=== PATIENT | female | born 1950 | race Caucasian/White ===

== ENCOUNTER 2016-11-04 16:23 | Emergency (ER) | payer MEDICARE, OTHER ==
[2016-11-04 16:46] VITALS: RESP 18
[2016-11-04] MEDS ORDERED: ASPIRIN 81 MG CHEW PO STA (16:59)
[2016-11-04] MEDS ORDERED: SODIUM CHLORIDE 0.9% 500 ML IV STA (16:59)
--- NOTE | 2016-11-04 17:26 | ED ---
General Adult HPI - General Chief complaint: Back Pain/Injury Stated complaint: Back Pain Time Seen by Provider: 11/04/16 16:32 Source: patient, RN notes reviewed Mode of arrival: ambulatory Limitations: no limitations - History of Present Illness Initial comments: 66-year-old female presents with a chief complaint of right upper back pain. Patient states this might she's had this pain to the right lower shoulder blade. Patient states movement wouldn't change the pain touch wouldn't claims the pain. Patient states she took 2 aspirin and went out yesterday. Patient states the pain is about a 1 out of 10 intensity dull type pain. Patient states that there is no changes his breathing had no vomiting she's had no sweating. Patient states that there hasn't been any or chills. Patient states that she does have a history of high cholesterol. Patient denies any recent fever, chills, shortness of breath, chest pain, abdominal pain, nausea vomiting , numbness or tingling, dysuria or hematuria, constipation or diarrhea, headaches or visual changes, or any other current symptoms. - Related Data Home Medications Medication Instructions Recorded Confirmed Aspirin 162 mg PO ONCE PRN 11/04/16 11/04/16 Atorvastatin [Lipitor] 20 mg PO DAILY 11/04/16 11/04/16 Coricidin 1 tab PO Q6H PRN MDD 4 TABLETS 11/04/16 11/04/16 [place]-3 Fatty Acids/Fish Oil [Fish 1 cap PO DAILY 11/04/16 11/04/16 Oil 1,000 mg Softgel] Allergies Allergy/AdvReac Type Severity Reaction Status Date / Time Sulfa (Sulfonamide Allergy Itching Verified 11/04/16 17:04 Antibiotics) codeine AdvReac Nausea & Verified 11/04/16 17:04 Vomiting Review of Systems ROS Statement: Those systems with pertinent positive or pertinent negative responses have been documented in the HPI. ROS Other: All systems not noted in ROS Statement are negative. Past Medical History Past Medical History: Cancer History of Any Multi-Drug Resistant Organisms: None Reported Past Surgical History: Unable to Obtain Past Psychological History: No Psychological Hx Reported Smoking Status: Never smoker Past Alcohol Use History: None Reported Past Drug Use History: None Reported General Exam - General Exam Comments Initial Comments: General: The patient is awake and alert, in no distress, and does not appear acutely ill. Eye: Pupils are equal, round and reactive to light, extra-ocular movements are intact; there is normal conjunctiva bilaterally. No signs of icterus. Ears, nose, mouth and throat: There are moist mucous membranes and no oral lesions. Neck: The neck is supple, there is no tenderness. Cardiovascular: There is a regular rate and rhythm. No murmur, rub or gallop is appreciated. Respiratory: Lungs are clear to auscultation, respirations are non-labored, breath sounds are equal. No wheezes, stridor, rales, or rhonchi. Gastrointestinal: Soft, non-distended, non-tender abdomen without masses or organomegaly noted. There is no rebound or guarding present. No CVA tenderness. Bowel sounds are unremarkable. Back: There is no tenderness to palpation in the midline. There is no obvious deformity. No rashes noted. Musculoskeletal: Normal ROM, no tenderness, There is no pedal edema. There is no calf tenderness or swelling. Sensation intact. Pulses equal bilaterally 2+. Neurological: CN II-XII intact, There are no obvious motor or sensory deficits. Coordination appears grossly intact. Speech is normal. Skin: Skin is warm and dry and no rashes or lesions are noted. Psychiatric: Cooperative, appropriate mood & affect, normal judgment. Limitations: no limitations Course Vital Signs 11/04/16 11/04/16 16:44 17:26 Temperature 97 F L Pulse Rate 80 84 Respiratory 18 18 Rate Blood Pressure 175/81 164/79 O2 Sat by Pulse 98 98 Oximetry EKG Findings - EKG Comments: EKG Findings:: normal sinus rhythm 86 bpm, normal axis, no atopy, no S-T depressions or elevations, Medical Decision Making - Medical Decision Making 66 female presents emergency with complaints of right-sided upper back pain. At this time chest x-ray and laboratory is reviewed. At this time there does not appear to be in acute process. Patient's cardiac enzymes are negative. Patient's pain is point specific to one area. She has no rash or any other findings. At this time. Low suspicion for cardiac in nature due to point specific pain that has not moved or changed and is not worsening and also gone with simple aspirin at home. This time we discussed follow-up with the doctor. We discussed return parameters and all the patient's family's questions. They stated they understood and agreed with plan. This time we will be discharged home. - Lab Data Result diagrams: 11/04/16 17:13 11/04/16 17:13 Lab Results 11/04/16 11/04/16 11/04/16 Range/Units 17:13 17:13 17:13 WBC 5.5 (3.8-10.6) k/uL RBC 4.62 (3.80-5.40) m/uL Hgb 14.5 (11.4-16.0) gm/dL Hct 43.4 (34.0-46.0) % MCV 93.8 (80.0-100.0) fL MCH 31.3 (25.0-35.0) pg MCHC 33.3 (31.0-37.0) g/dL RDW 12.9 (11.5-15.5) % Plt Count 249 (150-450) k/uL Neutrophils % 54 % Lymphocytes % 34 % Monocytes % 5 % Eosinophils % 3 % Basophils % 1 % Neutrophils # 3.0 (1.3-7.7) k/uL Lymphocytes # 1.9 (1.0-4.8) k/uL Monocytes # 0.3 (0-1.0) k/uL Eosinophils # 0.2 (0-0.7) k/uL Basophils # 0.0 (0-0.2) k/uL PT (9.0-12.0) sec INR (<1.1) APTT (22.0-30.0) sec Sodium 143 (137-145) mmol/L Potassium 4.1 (3.5-5.1) mmol/L Chloride 104 (98-107) mmol/L Carbon Dioxide 28 (22-30) mmol/L Anion Gap 11 mmol/L BUN 16 (7-17) mg/dL Creatinine 0.75 (0.52-1.04) mg/dL Est GFR (MDRD) Af Amer >60 (>60 ml/min/1.73 sqM) Est GFR (MDRD) Non-Af >60 (>60 ml/min/1.73 sqM) Glucose 100 H (74-99) mg/dL Calcium 9.7 (8.4-10.2) mg/dL Magnesium 1.9 (1.6-2.3) mg/dL Total Bilirubin 0.4 (0.2-1.3) mg/dL AST 28 (14-36) U/L ALT 30 (9-52) U/L Alkaline Phosphatase 63 (38-126) U/L Total Creatine Kinase 36 (30-135) U/L CK-MB (CK-2) 0.3 (0.0-2.4) ng/mL CK-MB (CK-2) Rel Index 0.8 Troponin I <0.012 (0.000-0.034) ng/mL Total Protein 7.0 (6.3-8.2) g/dL Albumin 3.9 (3.5-5.0) g/dL Amylase 79 (30-110) U/L Lipase 279 (23-300) U/L 11/04/16 Range/Units 17:13 WBC (3.8-10.6) k/uL RBC (3.80-5.40) m/uL Hgb (11.4-16.0) gm/dL Hct (34.0-46.0) % MCV (80.0-100.0) fL MCH (25.0-35.0) pg MCHC (31.0-37.0) g/dL RDW (11.5-15.5) % Plt Count (150-450) k/uL Neutrophils % % Lymphocytes % % Monocytes % % Eosinophils % % Basophils % % Neutrophils # (1.3-7.7) k/uL Lymphocytes # (1.0-4.8) k/uL Monocytes # (0-1.0) k/uL Eosinophils # (0-0.7) k/uL Basophils # (0-0.2) k/uL PT 9.9 (9.0-12.0) sec INR 1.0 (<1.1) APTT 23.0 (22.0-30.0) sec Sodium (137-145) mmol/L Potassium (3.5-5.1) mmol/L Chloride (98-107) mmol/L Carbon Dioxide (22-30) mmol/L Anion Gap mmol/L BUN (7-17) mg/dL Creatinine (0.52-1.04) mg/dL Est GFR (MDRD) Af Amer (>60 ml/min/1.73 sqM) Est GFR (MDRD) Non-Af (>60 ml/min/1.73 sqM) Glucose (74-99) mg/dL Calcium (8.4-10.2) mg/dL Magnesium (1.6-2.3) mg/dL Total Bilirubin (0.2-1.3) mg/dL AST (14-36) U/L ALT (9-52) U/L Alkaline Phosphatase (38-126) U/L Total Creatine Kinase (30-135) U/L CK-MB (CK-2) (0.0-2.4) ng/mL CK-MB (CK-2) Rel Index Troponin I (0.000-0.034) ng/mL Total Protein (6.3-8.2) g/dL Albumin (3.5-5.0) g/dL Amylase (30-110) U/L Lipase (23-300) U/L - Radiology Data Radiology results: report reviewed, image reviewed Disposition Clinical Impression: Right-sided back pain Disposition: HOME SELF-CARE Condition: Stable Instructions: Back Pain (ED) Additional Instructions: Please use medication as discussed. Please follow up with family doctor if symptoms have not improved over the next two days. Please return to the emergency room if your symptoms increase or worsen or for any other concerns. Referrals: Braden Vela MD [Primary Care Provider] - 1-2 days Time of Disposition: 18:09
[2016-11-04 17:27] VITALS: BP 164/79; PULSE 84
[2016-11-04 17:27] LABS: Basophils % (A) 1 %; CH 30.8; Eosinophils # (A) 0.2 k/uL (0-0.7); Eosinophils % (A) 3 %; HCT 43.4 % (34.0-46.0); HDW 2.56; HGB 14.5 gm/dL (11.4-16.0); Luc # (Auto) 0.16; Luc % (Auto) 3; Lymphocytes # (A) 1.9 k/uL (1.0-4.8); Lymphocytes % (A) 34 %; MCH 31.3 pg (25.0-35.0); MCHC 33.3 g/dL (31.0-37.0); MCV 93.8 fL (80.0-100.0); Mean Platelet Volume 7.7; Monocytes # (A) 0.3 k/uL (0-1.0); Monocytes % (A) 5 %; Neutrophils % (A) 54 %; RBC 4.62 m/uL (3.80-5.40); RDW 12.9 % (11.5-15.5); WBC 5.5 k/uL (3.8-10.6)
[2016-11-04 17:34] LABS: Prothrombin Time 9.9 sec (9.0-12.0)
[2016-11-04 17:40] LABS: ALT 30 U/L (9-52); AST 28 U/L (14-36); Alkaline Phosphatase 63 U/L (38-126); Amylase 79 U/L (30-110); Anion Gap 11 mmol/L; Blood Urea Nitrogen 16 mg/dL (7-17); Calcium 9.7 mg/dL (8.4-10.2); Carbon Dioxide 28 mmol/L (22-30); Chloride 104 mmol/L (98-107); Creatine Kinase 36 U/L (30-135); Glucose 100 mg/dL (74-99); Magnesium 1.9 mg/dL (1.6-2.3); Non-African American GFR(MDRD) >60 (>60 ml/min/1.73 sqM); Potassium 4.1 mmol/L (3.5-5.1); Sodium 143 mmol/L (137-145); Total Bilirubin 0.4 mg/dL (0.2-1.3)
[2016-11-04 17:52] LABS: Creatine Kinase MB 0.3 ng/mL (0.0-2.4); Troponin I <0.012 ng/mL (0.000-0.034)
--- NOTE | 2016-11-04 17:52 | XR ---
EXAMINATION TYPE: XR chest 2V DATE OF EXAM: 11/04/2016 5:44 PM COMPARISON: Chest radiograph dated 01/05/2010. HISTORY: Chest pain and upper back pain. TECHNIQUE: Frontal and lateral views of the chest are obtained. FINDINGS: There is no focal air space opacity, pleural effusion, or pneumothorax seen. The cardiac silhouette size is within normal limits. The osseous structures are intact. Surgical clips are note d within the left upper quadrant. IMPRESSION: No acute cardiopulmonary process.
[2016-11-04 18:30] VITALS: TEMP 97.5
== END 2016-11-04 18:20 | disposition home or self-care (01) ==
LOC: EC 16:23
DX: M54.6 Pain in thoracic spine (principal); Z85.9 Personal history of malignant neoplasm, unspecified; Z79.899 Other long term (current) drug therapy; Z88.2 Allergy status to sulfonamides; Z88.5 Allergy status to narcotic agent
CPT/HCPCS: 36415; 71020; 80053; 82150; 82550; 82553; 83690; 83735; 84484; 85025; 85610; 85730; 93005; 96360; 99283

== ENCOUNTER → 2017-06-15 | Outpatient (CLI) | payer MEDICARE, OTHER ==
--- NOTE | 2017-06-15 11:12 | MM ---
Reason for exam: additional evaluation requested from prior study. Last mammogram was performed 1 year ago. History: Patient is postmenopausal, has history of other cancer at age 62, and has history of breast cancer at age 54. Family history of breast cancer in maternal aunt at age 75 and premenopausal breast cancer in maternal cousin at age 40. Breast lift of the left breast, 2016. Reduction of the right breast, 2016. Malignant stereotactic core biopsy of the left breast, October 14, 2004. Lumpectomy of the left breast, October 2004. Chemotherapy, 2004. Radiation therapy of the left breast, 2004. Took estrogen for 3 years beginning at age 45. Took progesterone for 3 years beginning at age 45. Took antineoplastic for 5 years beginning at age 54. Taking other hormone for 5 years beginning at age 59. Physical Findings: Nurse did not find any significant physical abnormalities on exam. MG 3D Diag Mammo W/Cad LUKE Bilateral CC and MLO view(s) were taken. Prior study comparison: June 14, 2016, bilateral MG 3d diag mammo w/cad LUKE. June 09, 2015, bilateral MG diagnostic mammo w CAD LUKE. The breast tissue is almost entirely fat. Stable benign calcifications. Stable post operative changes in the left breast. No significant new findings when compared with previous films. These results were verbally communicated with the patient and result sheet given to the patient on 06/15/17. ASSESSMENT: Benign, BI-RAD 2 RECOMMENDATION: Follow-up diagnostic mammogram of both breasts in 1 year.
== END | disposition home or self-care (01) ==
LOC: RADMAMWWP 10:20
PROVIDERS: ATTEND Family Medicine
DX: Z08 Encounter for follow-up examination after completed treatment for malignant neoplasm (principal); Z85.3 Personal history of malignant neoplasm of breast
CPT/HCPCS: G0204; G0279

== ENCOUNTER → 2017-12-22 | Outpatient (CLI) | payer MEDICARE, OTHER ==
[2017-12-22 14:58] LABS: Blood Urea Nitrogen 20 mg/dL (7-17)
--- NOTE | 2017-12-22 16:28 | CT ---
EXAMINATION TYPE: CT abdomen pelvis w con DATE OF EXAM: 12/22/2017 COMPARISON: 5-16 HISTORY: rt kidney ca/lt breast ca CT DLP: 1258 mGycm CONTRAST: CT scan of the abdomen and pelvis is performed with Oral Contrast and with IV Contrast, patient injec song with 100 mL of Isovue 300. FINDINGS: LUNG BASES-: No visible nodule. No infiltrate. Small sliding-type hiatal hernia with reflux. LIVER/GB: No calcified gallstones. No space occupying hepatic lesion. Biliary tree is of normal ca liber. PANCREAS: No inflammation. No distinct mass. SPLEEN: No splenic enlargement. Stable splenic cyst. ADRENALS: No nodule. No thickening. KIDNEYS/BLADDER: Postoperative changes right kidney without evidence for recurrent mass. Parapelvic renal cysts noted bilaterally left greater than right. No hydronephrosis. No nephrolithiasis. Urinar y bladder grossly unremarkable. BOWEL: Normal appendix. Normal bowel caliber. No inflammation. GENITAL ORGANS: Hysterectomy changes identified. LYMPH NODES: No greater than 1cm abdominal or pelvic lymph nodes are appreciated. AORTA: No significant abnormality. OSSEOUS STRUCTURES: No significant abnormality is seen. OTHER: No significant additional abnormality is seen. IMPRESSION: 1. Postoperative changes right kidney without evidence for recurrent mass. 2.Parapelvic renal cysts noted bilaterally left greater than right.
== END ==
LOC: RADCTMAIN 14:13
PROVIDERS: ATTEND Urology
DX: N28.1 Cyst of kidney, acquired (principal); Z90.5 Acquired absence of kidney
CPT/HCPCS: 82565; 84520; 74177; 36415; Q9967

== ENCOUNTER → 2018-07-06 | Outpatient (CLI) | payer MEDICARE, OTHER ==
--- NOTE | 2018-07-09 10:31 | MM ---
Reason for exam: additional evaluation requested from prior study. Last mammogram was performed 1 year and 1 month ago. History: Patient is postmenopausal, has history of other cancer at age 62, and has history of breast cancer at age 54. Family history of breast cancer in maternal aunt at age 75 and premenopausal breast cancer in maternal cousin at age 40. Breast lift of the left breast, 2016. Reduction of the right breast, 2016. Malignant stereotactic core biopsy of the left breast, October 14, 2004. Lumpectomy of the left breast, October 2004. Chemotherapy, 2004. Radiation therapy of the left breast, 2004. Took estrogen for 3 years beginning at age 45. Took progesterone for 3 years beginning at age 45. Took antineoplastic for 5 years beginning at age 54. Taking other hormone for 5 years beginning at age 59. Physical Findings: Nurse did not find any significant physical abnormalities on exam. MG 3D Diag Mammo W/Cad LUKE Bilateral CC and MLO view(s) were taken. ML, CC with magnification, and ML with magnification view(s) were taken of the left breast. Prior study comparison: June 15, 2017, bilateral MG 3d diag mammo w/cad LUKE. June 14, 2016, bilateral MG 3d diag mammo w/cad LUKE. Finding: There are regional course calcifications in the left breast at biopsy site may be post surgical change. Consensus review performed. Asymmetric breast tissue greater in the right breast. Post surgical changes in left breast. New finding since June 15, 2017 and June 14, 2016. These results were verbally communicated with the patient and result sheet given to the patient on 07/06/18. ASSESSMENT: Suspicious, BI-RAD 4 RECOMMENDATION: Surgical consultation and stereotactic core biopsy of the left breast. Called Dr. Vela with mammographic findings and has scheduled an appointment for the patient for 08/08/18 at 3:[address] Montemayor. Biopsy scheduled for 07/19/18 at 10:20. PRELIMINARY REPORT CALLED AND FAXED TO DR. MONTEMAYOR ON 07/06/18.
== END | disposition home or self-care (01) ==
LOC: RADMAMWWP 14:08
PROVIDERS: ATTEND Family Medicine
DX: Z08 Encounter for follow-up examination after completed treatment for malignant neoplasm (principal); Z85.3 Personal history of malignant neoplasm of breast
CPT/HCPCS: 77066; G0279; 77062

== ENCOUNTER → 2018-07-19 | Day surgery (SDC) | payer MEDICARE, OTHER ==
[2018-07-19 09:34] VITALS: RESP 16; TEMP 98.1; BMI 28.1
[2018-07-19 10:54] VITALS: BP 148/89; PULSE 101
--- NOTE | 2018-07-19 10:56 | MM ---
Stereotactic Mammotome core biopsy left breast. HISTORY: Microcalcifications in a patient with history of prior lumpectomy. The microcalcifications in question within the left breast were targeted by the undersigned. Procedure was performed by the undersigned. Informed consent was obtained and all of the patients questions were answered. The standard sterile technique was utilized and appropriate local anesthesia was obtained with 1% lidocaine. 1% lidocaine and epinephrine was also utilized. Mammotome probe was advanced and multiple core samples were obtained and sent to pathology for interpretation. Microclip marker was deployed at the site of biopsy. Post procedural mammogram demonstrates appropriate deployment of radiopaque clip marker. The patient tolerated the procedure well and left the department in stable condition. Pathology results are pending. IMPRESSION: Successful stereotactic core biopsy left breast microcalcifications with pathology results pending. Pathology Results: Benign LEFT BREAST, STEREOTACTIC CORE BIOPSY: Scar with fat necrosis and dystrophic calcifications. Negative for malignancy. Recommendation Follow up mammogram of the left breast in 6 months. PHILIP
== END ==
LOC: RADMAMWWP 09:18
PROVIDERS: ATTEND Surgery
DX: N64.1 Fat necrosis of breast (principal); L90.5 Scar conditions and fibrosis of skin; Z88.2 Allergy status to sulfonamides; Z88.5 Allergy status to narcotic agent
CPT/HCPCS: 88305; 19081; A4648; J2001

== ENCOUNTER → 2019-01-04 | Outpatient (CLI) | payer MEDICARE, OTHER ==
--- NOTE | 2019-01-04 10:53 | MM ---
Reason for exam: follow-up at short interval from prior study. Last mammogram was performed 6 months ago. History: Patient is postmenopausal, has history of other cancer at age 62, and has history of breast cancer at age 54. Family history of breast cancer in maternal aunt at age 75 and premenopausal breast cancer in maternal cousin at age 40. Benign MG stereo VAD BX LT of the left breast, July 19, 2018. Breast lift of the left breast, 2015. Reduction of the right breast, 2015. Malignant stereotactic core biopsy of the left breast, October 14, 2004. Lumpectomy of the left breast, October 2004. Chemotherapy, 2004. Radiation therapy of the left breast, 2004. Took estrogen for 3 years beginning at age 45. Took progesterone for 3 years beginning at age 45. Took antineoplastic for 5 years beginning at age 54. Physical Findings: Nurse did not find any significant physical abnormalities on exam. MG 3D Diag Mammo W/Cad LUKE Bilateral CC and MLO view(s) were taken. Prior study comparison: July 06, 2018, bilateral MG 3d diag mammo w/cad LUKE. June 15, 2017, bilateral MG 3d diag mammo w/cad LUKE. There are scattered fibroglandular densities. Stable benign calcifications. Stable post operative distortion left breast. No significant new findings when compared with previous films. These results were verbally communicated with the patient and result sheet given to the patient on 01/04/19. ASSESSMENT: Benign, BI-RAD 2 RECOMMENDATION: Follow-up diagnostic mammogram of both breasts in 1 year.
== END ==
LOC: RADMAMWWP 10:09
PROVIDERS: ATTEND Surgery
DX: R92.8 Other abnormal and inconclusive findings on diagnostic imaging of breast (principal)
CPT/HCPCS: 77066; G0279; 77062

== ENCOUNTER 2019-01-12 12:22 | Emergency (ER) | payer MEDICARE, OTHER ==
[2019-01-12 12:35] VITALS: BP 146/73; PULSE 97; RESP 18; TEMP 98.2
[2019-01-12 12:56] LABS: Appearance,Urine Clear (Clear); Bilirubin,Urine Negative (Negative); Blood,Urine Moderate (Negative); Color,Urine Light Yellow; Glucose,Urine (UA) Negative (Negative); Ketones,Urine Trace (Negative); Leukocyte Esterase,Urine Large (Negative); Mucus,Urine Rare /hpf; Nitrite,Urine Positive (Negative); Protein,Urine Trace (Negative); RBC,Urine >182 /hpf (0-5); Specific Gravity,Urine 1.017 (1.001-1.035); Squamous Epithelial Cell,Urine <1 /hpf (0-4); Urobilinogen,Urine <2.0 mg/dL (<2.0); WBC,Urine 52 /hpf (0-5)
--- NOTE | 2019-01-12 13:35 | ED ---
Female Urogenital HPI - General Chief complaint: Urogenital Stated complaint: blood in urine Time Seen by Provider: 01/12/19 12:35 Source: patient Mode of arrival: ambulatory - History of Present Illness Initial comments: 68-year-old female with history of left renal carcinoma in remission presented today for chief complaint of cereal and hematuria. Patient states she has burni ng with teeing she noticed a small lump on a little finger. Patient states when she wrecked emergency department and provided urine sample she noticed blood in the urine. Patient is concerned of possible infection she states she does have a left kidney cyst is not sure if this is associated. Patient states her primary care is closed and presents emergency department for evaluation. Remaining review of systems negative. - Related Data Home Medications Medication Instructions Recorded Confirmed Atorvastatin [Lipitor] 20 mg PO DAILY 11/04/16 07/19/18 [place]-3 Fatty Acids/Fish Oil [Fish 1 cap PO DAILY 11/04/16 07/19/18 Oil 1,000 mg Softgel] Loratadine [Claritin] 10 mg PO DAILY 07/09/18 07/19/18 Multivit with Calcium,Iron,Min 1 each PO DAILY 07/09/18 07/19/18 [Women's Multivitamin] Previous Rx's Medication Instructions Recorded Cephalexin [Keflex] 500 mg PO Q12HR 7 Days #14 cap 01/12/19 Allergies Allergy/AdvReac Type Severity Reaction Status Date / Time Sulfa (Sulfonamide Allergy Itching Verified 01/12/19 12:35 Antibiotics) codeine AdvReac Nausea & Verified 01/12/19 12:35 Vomiting Review of Systems ROS Statement: Those systems with pertinent positive or pertinent negative responses have been documented in the HPI. ROS Other: All systems not noted in ROS Statement are negative. Past Medical History Past Medical History: Cancer, Hyperlipidemia Additional Past Medical History / Comment(s): Left breast cancer 2004, Kidney cancer 2012 History of Any Multi-Drug Resistant Organisms: None Reported Past Surgical History: Breast Surgery, Hysterectomy Additional Past Surgical History / Comment(s): Right ear surgery, Breast lumpectomy, Breast reconstruction and lift 2016, Past Anesthesia/Blood Transfusion Reactions: No Reported Reaction Past Psychological History: No Psychological Hx Reported Smoking Status: Never smoker Past Alcohol Use History: Rare Past Drug Use History: None Reported General Exam - General Exam Comments Initial Comments: General: The patient is awake and alert, in no distress, and does not appear acutely ill. Eye: Pupils are equal, round and reactive to light, extra-ocular movements are intact. No nystagmus. There is normal conjunctiva bilaterally. No signs of icterus. Cardiovascular: There is a regular rate and rhythm. No murmur, rub or gallop is appreciated. Respiratory: Lungs are clear to auscultation, respirations are non-labored, breath sounds are equal. No wheezes, stridor, rales, or rhonchi. Gastrointestinal: Soft, non-distended, non-tender abdomen without masses or organomegaly noted. There is no rebound or guarding present. No CVA tenderness. Bowel sounds are unremarkable. Musculoskeletal: Normal ROM, no tenderness. Strength 5/5. Sensation intact. Pulses equal bilaterally 2+. Neurological: A&O x 3. CN II-XII intact, There are no obvious motor or sensory deficits. Coordination appears grossly intact. Speech is normal. Skin: Skin is warm and dry and no rashes or lesions are noted. Psychiatric: Cooperative, appropriate mood & affect, normal judgment. Course Vital Signs 01/12/19 12:32 Temperature 98.2 F Pulse Rate 97 Respiratory 18 Rate Blood Pressure 146/73 O2 Sat by Pulse 97 Oximetry Medical Decision Making - Medical Decision Making 68yo female presented for dysuria hematuria. Urinalysis revealed positive nitrates, white blood cells, patient denies any constitutional symptoms or back pain no CVA tenderness on exam. Patient appears well and nontoxic. Afebrile vital signs within acceptable limits. At this time will treat urinary tract in fection patient is to follow-up with urology given patient's history of renal cancer. I discussed the case with attending provider including patient's past mental history with attending Dr. Valenzuela who is agreeable patient care plan in discharge at this time. Return parameters were discussed at length and in detail patient prior to patient discharge-verbalized understanding. - Lab Data Lab Results 01/12/19 Range/Units 12:47 Urine Color Light Yellow Urine Appearance Clear (Clear) Urine pH 6.0 (5.0-8.0) Ur Specific [place] 1.017 (1.001-1.035) Urine Protein Trace H (Negative) Urine Glucose (UA) Negative (Negative) Urine Ketones Trace H (Negative) Urine Blood Moderate H (Negative) Urine Nitrite Positive H (Negative) Urine Bilirubin Negative (Negative) Urine Urobilinogen <2.0 (<2.0) mg/dL Ur Leukocyte Esterase Large H (Negative) Urine RBC >182 H (0-5) /hpf Urine WBC 52 H (0-5) /hpf Ur Squamous Epith Cells <1 (0-4) /hpf Urine Mucus Rare H (None) /hpf Disposition Clinical Impression: UTI (urinary tract infection) Disposition: HOME SELF-CARE Condition: Good Instructions (If sedation given, give patient instructions): Urinary Tract Infection in Women (ED) Additional Instructions: Please use medication as discussed. Please follow-up with Dr. Gunter next week. Please return to emergency room if the symptoms increase or worsen or for any other concerns. Prescriptions: Cephalexin [Keflex] 500 mg PO Q12HR 7 Days #14 cap Is patient prescribed a controlled substance at d/c from ED?: No Referrals: Braden Vela MD [Primary Care Provider] - 1-2 days Time of Disposition: 13:35
== END 2019-01-12 14:10 | disposition home or self-care (01) ==
LOC: EC 12:22
DX: N39.0 Urinary tract infection, site not specified (principal); R22.30 Localized swelling, mass and lump, unspecified upper limb; E78.5 Hyperlipidemia, unspecified; Z85.3 Personal history of malignant neoplasm of breast; Z85.528 Personal history of other malignant neoplasm of kidney; Z79.899 Other long term (current) drug therapy; Z88.2 Allergy status to sulfonamides; Z88.5 Allergy status to narcotic agent
CPT/HCPCS: 81001; 99283

== ENCOUNTER → 2019-01-22 | Outpatient (CLI) | payer MEDICARE, OTHER ==
[2019-01-22 14:24] LABS: Blood Urea Nitrogen 20 mg/dL (7-17)
--- NOTE | 2019-01-22 14:58 | CT ---
EXAMINATION TYPE: CT abdomen w con DATE OF EXAM: 01/22/2019 COMPARISON: 12/22/2017 HISTORY: Right sided renal cancer. CT DLP: 679 mGycm Automated exposure control for dose reduction was used. TECHNIQUE: Helical acquisition of images was performed from the lung bases through the top of iliac crest to include entire abdomen. CONTRAST: Performed with Oral Contrast and with IV Contrast, patient injected with 100ml mL of Isovue 300. FINDINGS: LUNG BASES: Heart is mildly enlarged and there is a trace of pericardial fluid. Lungs clear.. LIVER/GB: Tiny hypodensities involving the dome of the liver measure less than 5 mm are too small to characterize and stable and therefore likely benign. PANCREAS: No significant abnormality is seen. SPLEEN: Stable's 8mm lesion within the spleen too small to characterize. ADRENALS: No significant abnormality is seen. KIDNEYS: Bilateral parapelvic renal cysts have a simple appearance stable. Correlate for previous deon frankie involving the right kidney. No diagnostic evidence of hydronephrosis or nephrolithiasis. BOWEL: No significant abnormality is seen. LYMPH NODES: No significant abnormality is seen. OSSEOUS STRUCTURES: Degenerative disc disease noted. OTHER: Atherosclerotic changes aorta. No free fluid. Post hysterectomy changes identified. Postbiopsy changes involving the left breast with residual density which likely represents scar is stable from prior exam. IMPRESSION: 1. STABLE POSTOPERATIVE CHANGES INVOLVING THE RIGHT KIDNEY WITH NO EVIDENCE OF RECURRENT MASS.
== END | disposition home or self-care (01) ==
LOC: RADCTMAIN 13:41
PROVIDERS: ATTEND Urology
DX: Z08 Encounter for follow-up examination after completed treatment for malignant neoplasm (principal); Z88.2 Allergy status to sulfonamides; Z88.5 Allergy status to narcotic agent; Z85.528 Personal history of other malignant neoplasm of kidney
CPT/HCPCS: 82565; 84520; 74160; 36415; Q9967

== ENCOUNTER → 2019-08-09 | Outpatient (CLI) | payer MEDICARE, OTHER ==
--- NOTE | 2019-08-09 12:08 | USB ---
Reason for exam: clinical finding. History: Patient is postmenopausal, has history of other cancer at age 62, and has history of breast cancer at age 54. Family history of breast cancer in maternal aunt at age 75 and premenopausal breast cancer in maternal cousin at age 40. Benign MG stereo VAD BX LT of the left breast, July 19, 2018. Breast lift of the left breast, 2016. Reduction of the right breast, 2016. Malignant stereotactic core biopsy of the left breast, October 14, 2004. Lumpectomy of the left breast, October 2004. Chemotherapy, 2004. Radiation therapy of the left breast, 2004. Took estrogen for 3 years beginning at age 45. Took progesterone for 3 years beginning at age 45. Took antineoplastic for 5 years beginning at age 54. Indicated problem(s): palpable abnormality in the left breast. Physical Findings: Nurse Summary: elongated, hardened palpable area left breast 4-5 o'clock near scar (nurse TM). US Breast LT Left complete breast ultrasound includes all four quadrants, the retroareolar region and axilla. Finding demonstrates a 1.4 x 0.8 x 0.5cm solid, hypoechoic, suspicious lesion at 5 o'clock for which a biopsy is recommended. These results were verbally communicated with the patient and result sheet given to the patient on 08/09/19. ASSESSMENT: Suspicious, BI-RAD 4 RECOMMENDATION: Ultrasound core biopsy of the left breast. Called Dr. Ayoub's office with mammographic findings and has scheduled an appointment for the patient for 08/21/19 at 4:[address] Montemayor. Biopsy scheduled 08/15/19 at 2:00. PRELIMINARY REPORT CALLED AND FAXED TO DR. MONTEMAYOR ON 08/09/19.
== END | disposition home or self-care (01) ==
LOC: RADUSWWP 09:34
PROVIDERS: ATTEND Obstetrics & Gynecology
DX: N63.0 Unspecified lump in unspecified breast (principal)

== ENCOUNTER → 2019-08-15 | Day surgery (SDC) | payer MEDICARE, OTHER ==
[2019-08-15 13:15] VITALS: RESP 16
[2019-08-15 14:06] VITALS: BP 124/76; PULSE 83; TEMP 97.6
--- NOTE | 2019-08-15 14:24 | USB ---
EXAMINATION TYPE: US biopsy breast VAD LT, MG diagnostic mammo LT wo CAD DATE OF EXAM: 08/15/2019 CLINICAL HISTORY: R92.8 ABN MAMMO. TECHNIQUE: Ultrasound guided core biopsy of left 5:00 breast. COMPARISON: NONE FINDINGS: The procedure of ultrasound guided core biopsy was explained to the patient. Benefits, alternatives, and risks were discussed. An informed consent was then obtained. The patient was placed in supine positioning for imaging and for the procedure. The overlying skin was prepped and draped in usual sterile fashion. Lidocaine buffered with bicarbonate was used as anesthetic into the skin and subcutaneous tissue up to area of concern in the left 5:00 breast. Under ultrasound guidance, a 12-gauge vacuum assisted biopsy gun device was used to obtain 3 core samples. Lesion was no longer visible and likely reflects a sebaceous cyst. Following this, a biopsy clip was left in lesion. Postprocedural mammogram demonstrates appropriate deployment of microclip marker. The patient tolerated the procedure well without any immediate complication. The patient was kept in the radiology department for short stay after the procedure and then discharged home in stable condition. IMPRESSION: Successful, uncomplicated ultrasound guided core biopsy of area of concern in the left 5:00 breast, full pathology results to follow. Probable sebaceous cyst. Pathology Results: Benign LEFT BREAST LESION AT 5:00 POSITION, NEEDLE CORE BIOPSY: Dense fibrous breast parenchyma consistent with scar, partially mineralized debris and foamy giant cells consistent with ruptured duct ectasia; surrounding breast shows unremarkable adipose tissue consistent with fibrocystic spectrum disease. Negative for neoplasm. Recommendation Follow up ultrasound of the left breast in 6 months. PHILIP
== END ==
LOC: RADUSWWP 12:57
PROVIDERS: ATTEND Surgery
DX: N64.89 Other specified disorders of breast (principal)
CPT/HCPCS: 88305; 77065; 19083; A4648; J2001

== ENCOUNTER → 2020-02-10 | Outpatient (CLI) | payer MEDICARE, OTHER ==
[2020-02-10 08:45] LABS: African American GFR (CKD) >90 (>60 ml/min/1.73 sqM); Blood Urea Nitrogen 19 mg/dL (7-17); Non-African American GFR(CKD) >90 (>60 ml/min/1.73 sqM)
--- NOTE | 2020-02-10 10:04 | CT ---
EXAMINATION TYPE: CT abdomen w con DATE OF EXAM: 02/10/2020 COMPARISON: Prior CT 01/22/2019 HISTORY: follow up renal cancer CT DLP: 367 mGycm Automated exposure control for dose reduction was used. TECHNIQUE: Helical acquisition of images was performed from the lung bases through the top of iliac crest to include entire abdomen. CONTRAST: Performed with Oral Contrast and with IV Contrast, patient injected with 100 mL of Isovue 300. FINDINGS: Stable postsurgical changes in the left breast. There is a hiatal hernia present as on prio r exam. Small umbilical hernia contains fat. There are coronary artery calcifications present as on p rior. LUNG BASES: No significant abnormality is appreciated. LIVER/GB: No significant interval change is appreciated. PANCREAS: No significant abnormality is seen. SPLEEN: No significant interval change is seen. ADRENALS: No significant abnormality is seen. KIDNEYS: Stable appearance, no recurrent tumor evident, there are parapelvic cysts bilaterally. BOWEL: No significant abnormality is seen. LYMPH NODES: No significant abnormality is appreciated. OSSEOUS STRUCTURES: No significant abnormality is seen. FREE AIR: No Free Air visible ASCITES: None visible. RETROPERITONEAL ADENOPATHY: No Retroperitoneal Adenopathy visible. IMPRESSION: STABLE EXAM. RECURRENCE IS NOT EVIDENT.
== END | disposition home or self-care (01) ==
LOC: RADCTMAIN 07:55
PROVIDERS: ATTEND Urology
DX: C64.1 Malignant neoplasm of right kidney, except renal pelvis (principal); Z88.2 Allergy status to sulfonamides; Z88.5 Allergy status to narcotic agent
CPT/HCPCS: 82565; 84520; 74160; 36415; Q9967

== ENCOUNTER → 2020-02-17 | Outpatient (CLI) | payer MEDICARE, OTHER ==
--- NOTE | 2020-02-18 09:25 | MM ---
Reason for exam: follow-up at short interval from prior study. Last mammogram was performed 6 months ago. History: Patient is postmenopausal, has history of other cancer at age 62, and has history of breast cancer at age 54. Family history of breast cancer in maternal aunt at age 75 and premenopausal breast cancer in maternal cousin at age 40. Benign US biopsy breast VAD LT of the left breast, August 15, 2019. Benign MG stereo VAD BX LT of the left breast, July 19, 2018. Breast lift of the left breast, 2015. Reduction of the right breast, 2015. Malignant stereotactic core biopsy of the left breast, October 14, 2004. Lumpectomy of the left breast, October 2004. Chemotherapy, 2004. Radiation therapy of the left breast, 2004. Took estrogen for 3 years beginning at age 45. Took progesterone for 3 years beginning at age 45. Took antineoplastic for 5 years beginning at age 54. Physical Findings: Nurse did not find any significant physical abnormalities on exam. MG 3D Diag Mammo W/Cad LUKE Bilateral CC and MLO view(s) were taken. Prior study comparison: August 15, 2019, left breast MG diagnostic mammo LT wo CAD. January 04, 2019, bilateral MG 3d diag mammo w/cad [facility]. There are scattered fibroglandular densities. Post surgical and post therapy changes in the left breast. Stable fat necrosis calcifications 9 o'clock posteriorly at the excisions site and also centrally and posteriorly unchanged from 01/04/19. These results were verbally communicated with the patient and result sheet given to the patient on 02/17/20. ASSESSMENT: Incomplete: need additional imaging evaluation, BI-RAD 0 RECOMMENDATION: Ultrasound of the left breast. (as ordered)
--- NOTE | 2020-02-18 09:28 | USB ---
Reason for exam: follow-up at short interval from prior study. History: Patient is postmenopausal, has history of other cancer at age 62, and has history of breast cancer at age 54. Family history of breast cancer in maternal aunt at age 75 and premenopausal breast cancer in maternal cousin at age 40. Benign US biopsy breast VAD LT of the left breast, August 15, 2019. Benign MG stereo VAD BX LT of the left breast, July 19, 2018. Breast lift of the left breast, 2016. Reduction of the right breast, 2015. Malignant stereotactic core biopsy of the left breast, October 14, 2004. Lumpectomy of the left breast, October 2004. Chemotherapy, 2004. Radiation therapy of the left breast, 2004. Took estrogen for 3 years beginning at age 45. Took progesterone for 3 years beginning at age 45. Took antineoplastic for 5 years beginning at age 54. US Breast LT Left complete breast ultrasound includes all four quadrants, the retroareolar region and axilla. Finding demonstrates a 0.2 x 0.2 x 0.2cm oval, hyperechoic lesion with shadowing at 7 o'clock likely calcification or clip, 6 month follow up mammogram can exclude any increasing calcifications, a hyperechoic scar area at 7 o'clock and a hypoechoic, irregular scar at 7 o'clock. The excised 5 o'clock lesion in no longer seen. These results were verbally communicated with the patient and result sheet given to the patient on 02/17/20. ASSESSMENT: Probably benign, BI-RAD 3 RECOMMENDATION: Follow-up diagnostic mammogram of the left breast in 6 months.
== END | disposition home or self-care (01) ==
LOC: RADMAMWWP 10:13
PROVIDERS: ATTEND Surgery
DX: R92.8 Other abnormal and inconclusive findings on diagnostic imaging of breast (principal)
CPT/HCPCS: 77066; 76641; G0279; 77062

== ENCOUNTER → 2020-08-25 | Outpatient (CLI) | payer MEDICARE, OTHER ==
--- NOTE | 2020-08-26 08:03 | MM ---
Reason for exam: follow-up at short interval from prior study. Last mammogram was performed 6 months ago. History: Patient is postmenopausal, has history of other cancer at age 62, and has history of breast cancer at age 54. Family history of breast cancer in maternal aunt at age 75 and premenopausal breast cancer in maternal cousin at age 40. Benign US biopsy breast VAD LT of the left breast, August 15, 2019. Benign MG stereo VAD BX LT of the left breast, July 19, 2018. Breast lift of the left breast, 2015. Reduction of the right breast, 2015. Malignant stereotactic core biopsy of the left breast, October 14, 2004. Lumpectomy of the left breast, October 2004. Chemotherapy, 2004. Radiation therapy of the left breast, 2004. Took estrogen for 3 years beginning at age 45. Took progesterone for 3 years beginning at age 45. Took antineoplastic for 5 years beginning at age 54. Physical Findings: Nurse did not find any significant physical abnormalities on exam. MG 3D Diag Mammo W/Cad LT CC and MLO view(s) were taken of the left breast. Prior study comparison: February 17, 2020, bilateral MG 3d diag mammo w/cad LUKE. August 15, 2019, left breast MG diagnostic mammo LT wo CAD. There are scattered fibroglandular densities. No significant new findings when compared with previous films. These results were verbally communicated with the patient and result sheet given to the patient on 08/25/20. ASSESSMENT: Benign, BI-RAD 2 RECOMMENDATION: Follow-up diagnostic mammogram of both breasts in 6 months. Back on schedule for February 2021.
== END | disposition home or self-care (01) ==
LOC: RADMAMWWP 14:52
PROVIDERS: ATTEND Surgery
DX: R92.8 Other abnormal and inconclusive findings on diagnostic imaging of breast (principal)
CPT/HCPCS: 77065; G0279; 77061

== ENCOUNTER → 2021-02-25 | Outpatient (CLI) | payer MEDICARE, OTHER ==
--- NOTE | 2021-02-25 11:35 | MM ---
Reason for exam: additional evaluation requested from prior study. Last mammogram was performed 6 months ago. History: Patient is postmenopausal, has history of other cancer at age 62, and has history of breast cancer at age 54. Family history of breast cancer in maternal aunt at age 75 and premenopausal breast cancer in maternal cousin at age 40. Benign US biopsy breast VAD LT of the left breast, August 15, 2019. Benign MG stereo VAD BX LT of the left breast, July 19, 2018. Breast lift of the left breast, 2015. Reduction of the right breast, 2015. Malignant stereotactic core biopsy of the left breast, October 14, 2004. Lumpectomy of the left breast, October 2004. Chemotherapy, 2004. Radiation therapy of the left breast, 2004. Took estrogen for 3 years beginning at age 45. Took progesterone for 3 years beginning at age 45. Took antineoplastic for 5 years beginning at age 54. Physical Findings: Nurse did not find any significant physical abnormalities on exam. MG 3D Diag Mammo W/Cad LUKE Bilateral CC and MLO view(s) were taken. Prior study comparison: August 25, 2020, left breast MG 3d diag mammo w/cad LT. February 17, 2020, bilateral MG 3d diag mammo w/cad LUKE. There are scattered fibroglandular densities. Post operative changes bilaterally. These results were verbally communicated with the patient and result sheet given to the patient on 02/25/21. ASSESSMENT: Benign, BI-RAD 2 RECOMMENDATION: Routine screening mammogram of both breasts in 1 year.
== END | disposition home or self-care (01) ==
LOC: RADMAMWWP 10:42
PROVIDERS: ATTEND Surgery
DX: N64.89 Other specified disorders of breast (principal); Z78.0 Asymptomatic menopausal state; Z80.3 Family history of malignant neoplasm of breast; Z85.3 Personal history of malignant neoplasm of breast
CPT/HCPCS: 77066; G0279; 77062

== ENCOUNTER → 2022-03-01 | Outpatient (CLI) | payer MEDICARE, OTHER ==
--- NOTE | 2022-03-03 07:46 | MM ---
Reason for Exam: Screening (asymptomatic). Last screening mammogram was performed 12 month(s) ago. Patient History: Menarche at age 11. First Full-Term at age 18. Right ovary removed at age 42. Hysterectomy at age 42. Postmenopausal. Breast cancer, left, age 54. Previous chest radiation therapy at age 54. Previous chemotherapy at age 54. Estrogen, starting at age 45 for 3 years. Progesterone, starting at age 45 for 3 years. 10/2004, Lumpectomy on the Left side. 2015, Reduction on the Right side. 08/15/2019, Benign Core Biopsy on the left side. 07/19/2018, Benign Core Biopsy on the left side. 10/14/2004, Malignant Stereotactic Core Biopsy on the left side. 2004, Chemotherapy. 2004, Radiation Therapy on the left side. Maternal cousin had breast cancer, age 40. Maternal aunt had breast cancer, age 75. Prior Study Comparison: 02/17/2020 Bilateral Diagnostic Mammogram, [facility]. 08/25/2020 Left Diagnostic Mammogram, [facility]. 02/25/2021 Bilateral Diagnostic Mammogram, [facility]. Tissue Density: There are scattered fibroglandular densities. Findings: Analyzed By CAD. There is a large coarse calcification within the left breast. Postbiopsy clips are within the left breast. No suspicious groups of microcalcifications, spiculated or lobular masses, architectural distortion or other secondary signs of malignancy are mammographically apparent. Overall Assessment: Benign, BI-RAD 2 Management: Screening Mammogram of both breasts in 1 year. A negative mammogram report should not preclude additional follow up of suspicious palpable abnormalities. Patient should continue monthly self breast exam. A clinical breast exam by your physician is recommended on an annual basis and results should be correlated with mammographic findings. Electronically signed and approved by: Ranjith Solis D.O. Radiologis
== END | disposition home or self-care (01) ==
LOC: RADMAMWWP 09:28
PROVIDERS: ATTEND Surgery
DX: Z12.31 Encounter for screening mammogram for malignant neoplasm of breast (principal); Z80.3 Family history of malignant neoplasm of breast; Z78.0 Asymptomatic menopausal state; Z85.3 Personal history of malignant neoplasm of breast
CPT/HCPCS: 77063; 77067

== ENCOUNTER → 2022-05-16 | Outpatient (CLI) | payer MEDICARE, OTHER ==
[2022-05-16 18:07] LABS: Basophils # (A) 0.08 X 10*3/uL (0.00-0.10); Basophils % (A) 0.9 %; Eosinophils # (A) 0.22 X 10*3/uL (0.04-0.35); Eosinophils % (A) 2.5 %; HCT 46.1 % (37.2-46.3); HGB 14.5 g/dL (12.0-15.0); Immature Grans, Automated 0.3 %; Lymphocytes # (A) 2.04 X 10*3/uL (0.90-5.00); Lymphocytes % (A) 23.2 %; MCHC 31.5 g/dL (32.0-37.0); MCV 98.5 fL (80.0-97.0); Mean Platelet Volume 11.1 fL (9.5-12.2); Monocytes # (A) 0.71 X 10*3/uL (0.20-1.00); Monocytes % (A) 8.1 %; NRBC Per 100 WBC 0 /100 WBCS (0.0-0.0); Neutrophils # (A) 5.73 X 10*3/uL (1.80-7.70); Platelet Count 304 X 10*3/uL (140-440); RBC 4.68 X 10*6/uL (4.10-5.20); RDW 13.3 % (11.5-14.5); WBC 8.81 X 10*3/uL (4.50-10.00)
[2022-05-16 18:41] LABS: African American GFR (CKD) 100.3 (60.0-200.0); Anion Gap 10.6 mmol/L (10.00-18.00); BUN/Creat Ratio 28.14 Ratio (12.00-20.00); Blood Urea Nitrogen 19.7 mg/dL (9.0-27.0); Calcium 9.6 mg/dL (8.7-10.3); Carbon Dioxide 26.4 mmol/L (20.0-27.5); Non-African American GFR(CKD) 86.6 (60.0-200.0); Potassium 4.9 mmol/L (3.5-5.5)
[2022-05-16 23:53] LABS: Appearance,Urine Clear (Clear); Bilirubin,Urine Negative (Negative); Blood,Urine Negative (Negative); Color,Urine Yellow (Yellow); Ketones,Urine Trace mg/dL (Negative); Nitrite,Urine Negative (Negative); Specific Gravity,Urine 1.024 (1.001-1.030); Urobilinogen,Urine 0.2 (0.2,1.0)
== END | disposition home or self-care (01) ==
LOC: LABPAT 11:51
PROVIDERS: ATTEND Urology
DX: Z01.812 Encounter for preprocedural laboratory examination (principal); N20.0 Calculus of kidney; R31.29 Other microscopic hematuria
CPT/HCPCS: 80048; 81003; 85025; 87086

== ENCOUNTER 2022-05-23 05:56 | Day surgery (SDC) | payer MEDICARE, OTHER ==
[2022-05-20 09:39] VITALS: BMI 26.4
--- NOTE | 2022-05-22 18:07 | P.GSHP ---
History of Present Illness H&P Date: 05/22/22 72 yo female with a history of stones has a painful left renal stone, 8 mm , mid pole comes for eswl left. the risks and alternatives have been discussed. - Constitutional Constitutional: Denies chills, Denies fever - EENT Eyes: denies blurred vision, denies pain Ears, nose, mouth and throat: Denies headache, Denies sore throat - Cardiovascular Cardiovascular: Denies chest pain, Denies shortness of breath - Respiratory Respiratory: Denies cough, Denies 7 - Gastrointestinal Gastrointestinal: Denies abdominal pain, Denies diarrhea, Denies nausea, Denies vomiting - Genitourinary (Female) Genitourinary: Denies dysuria, Denies hematuria - Genitourinary (Male) Genitourinary: Denies dysuria, Denies hematuria - Musculoskeletal Musculoskeletal: Denies myalgias - Integumentary Integumentary: Denies pruritus, Denies rash - Neurological Neurological: Denies numbness, Denies weakness - Psychiatric Psychiatric: Denies anxiety, Denies depression - Endocrine Endocrine: Denies fatigue, Denies weight change Past Medical History Past Medical History: Cancer, Hyperlipidemia Additional Past Medical History / Comment(s): Hx left breast cancer 2004, hx kidney cancer 2012, hiatal hernia, current kidney stones. History of Any Multi-Drug Resistant Organisms: None Reported Past Surgical History: Breast Surgery, Ear Surgery Additional Past Surgical History / Comment(s): Right ear surgery, left breast lumpectomy, left breast reconstruction and lift 2015, kidney surgery, partial hysterectomy. Past Anesthesia/Blood Transfusion Reactions: No Reported Reaction Past Psychological History: No Psychological Hx Reported Smoking Status: Never smoker Past Alcohol Use History: None Reported Past Drug Use History: None Reported - Past Family History Son(s) Family Medical History: Deep Vein Thrombosis (DVT), Pulmonary Embolus Medications and Allergies Home Medications Medication Instructions Recorded Confirmed Type [place]-3 Fatty Acids/Fish Oil [Fish 1 cap PO DAILY 11/04/16 05/20/22 History Oil 1,000 mg Softgel] Atorvastatin [Lipitor] 10 mg PO HS 05/20/22 05/20/22 History Cholecalciferol [Vitamin D3 (25 50 mcg PO DAILY 05/20/22 05/20/22 History Mcg = 1000 Iu)] Devan Springer B.lactis 1 each PO DAILY 05/20/22 05/20/22 History [Probiotic] Allergies Allergy/AdvReac Type Severity Reaction Status Date / Time Sulfa (Sulfonamide Allergy Itching Verified 05/20/22 09:25 Antibiotics) codeine AdvReac Nausea & Verified 05/20/22 09:25 Vomiting Surgical - Exam - General well developed, well nourished, no distress - Eyes normal ocular movement, no icteric - ENT no hearing loss, no congestion - Neck no masses, trachea midline - Respiratory normal respiratory effort, clear to auscultation - Abdomen Abdomen: soft, non tender, no guarding, no rigid, no rebound - Integumentary no rash, no abnormal pigmentation - Neurologic no disoriented, no combative - Psychiatric oriented to time, oriented to person, oriented to place, speech is normal, memory intact Results - Imaging Abdominal x-ray: report reviewed, image reviewed Assessment and Plan Assessment: Impression: left renal stone plan: eswl left
[2022-05-23] MEDS ORDERED: LIDOCAINE 1% (10MG/ML) FOR IV START INTRADERMA PRN (06:49)
[2022-05-23] MEDS ORDERED: LACTATED RINGERS 1,000 ML IV SCH (06:49)
[2022-05-23] MEDS ORDERED: ONDANSETRON 4 MG/2 ML VIAL ONE (07:08)
[2022-05-23] MEDS ORDERED: DEXAMETHASONE SOD PHOSPHATE 4 MG/ML 1 ML VIAL IVP ONE (07:13)
[2022-05-23 07:14] VITALS: RESP 16; TEMP 97.8
--- NOTE | 2022-05-23 07:22 | XR ---
EXAMINATION TYPE: XR KUB DATE OF EXAM: 05/23/2022 Comparison: 04/26/2022 Clinical History: 72-year-old female preop left-sided renal calculus Findings: Moderate stool burden. Air and stool extends distally to the rectum. No dilated small bowel. Unchange d round calcification left side of the pelvis, probably phleboliths. Unchanged 8 mm left midpole emmett l calculus. Impression: 8 mm left midpole renal calculus is similar. Round calcification in the left side of the pelvis is al so unchanged, possible phlebolith.
[2022-05-23] MEDS ORDERED: PROPOFOL 10 MG/ML 20 ML VIAL IV ONE (07:33)
[2022-05-23] MEDS ORDERED: fentaNYL (PF) 50 MCG/ML 2 ML AMP ONE (07:33)
[2022-05-23] MEDS ORDERED: MIDAZOLAM 2 MG/2 ML VIAL ONE (07:33)
--- NOTE | 2022-05-23 08:17 | P.OP ---
Date of Procedure: 05/23/22 Preoperative Diagnosis: Left Renal Calculus Postoperative Diagnosis: Same Procedure(s) Performed: Left extracorporal shockwave lithotripsy (ESWL) Anesthesia: MAC Surgeon: Robert Whaley Estimated Blood Loss (ml): 0 IV fluids (ml): 300 Pathology: none sent Condition: stable Disposition: PACU Indications for Procedure: The patient is a 72-year-old white female with a history of kidney stones. She has a symptomatic 8 mm left midpole renal calculus and comes for ESWL. Operative Findings: Calculus fragmented well. Description of Procedure: The patient was taken to the operating room and placed on the Dornier Compact Delta II lithotripter in the supine position. The calculus was seen on biplanar fluoroscopy. Once the patient was properly positioned and sedated, lithotripsy was performed. The energy level was gradually increased per protocol, to an energy level of 4. After 200 shocks were administered, a 2 minute pause was instituted per protocol. A total of 2500 shocks were given at a rate of 80 shocks per minute. Fluoroscopy was utilized at a minimum to ensure proper positioning and determine the treatment status. The calculus changed in appearance, consistent with fragmentation. The patient tolerated the procedure well was taken to the recovery room in stable condition. Instructions were given to strain the urine, and the patient will follow-up within one week.
[2022-05-23 08:37] VITALS: BP 122/64; PULSE 71
== END 2022-05-23 09:15 | disposition home or self-care (01) ==
LOC: ORWHC2ENDO 05:56
PROVIDERS: ATTEND Urology
DX: N20.0 Calculus of kidney (principal); E78.5 Hyperlipidemia, unspecified; K44.9 Diaphragmatic hernia without obstruction or gangrene; Z85.3 Personal history of malignant neoplasm of breast; Z85.528 Personal history of other malignant neoplasm of kidney; Z88.2 Allergy status to sulfonamides; Z88.5 Allergy status to narcotic agent; Z79.899 Other long term (current) drug therapy
CPT/HCPCS: 50590; 74018; J2250; J1100; J2405; J3010; J2704

== ENCOUNTER → 2022-05-30 | Outpatient (CLI) | payer MEDICARE, OTHER ==
--- NOTE | 2022-05-30 12:46 | XR ---
EXAMINATION TYPE: XR KUB DATE OF EXAM: 05/30/2022 Comparison: 05/23/2022 Clinical History: 72-year-old female N20.0 renal calculus Findings: Asymmetric elevation right hemidiaphragm may relate to focal eventration. Surgical clips projecting a t the lower left chest likely postsurgical change within the overlying breast. There is moderate stoo l burden. Supine imaging limited for assessment of free air. No dilated small bowel. Bowel content la rgely obscures the renal shadows. Pelvic phleboliths. Impression: Moderate stool burden. Bowel content largely obscures the renal shadows. The previous 8 mm density in the left side of the abdomen is no longer seen.
== END | disposition home or self-care (01) ==
LOC: RADXRMAIN 07:25
PROVIDERS: ATTEND Urology
DX: R19.5 Other fecal abnormalities (principal)
CPT/HCPCS: 74018

== ENCOUNTER → 2023-03-03 | Outpatient (CLI) | payer MEDICARE, OTHER ==
--- NOTE | 2023-03-03 11:38 | MM ---
Reason for Exam: Hx of breast cancer, conservation therapy. Last screening mammogram was performed 12 month(s) ago. Indicated Problems: Pain of the left side (Global) for 3 Month(s). Patient History: Menarche at age 11. First Full-Term at age 18. Right ovary removed at age 42. Hysterectomy at age 42. Postmenopausal. Breast cancer, left, age 54. Previous chest radiation therapy at age 54. Previous chemotherapy at age 54. Estrogen, starting at age 45 for 3 years. Progesterone, starting at age 45 for 3 years. 10/2004, Lumpectomy on the Left side. 2015, Reduction on the Right side. 08/15/2019, Benign Core Biopsy on the left side. 07/19/2018, Benign Core Biopsy on the left side. 10/14/2004, Malignant Stereotactic Core Biopsy on the left side. 2004, Chemotherapy. 2004, Radiation Therapy on the left side. Maternal cousin had breast cancer, age 40. Maternal aunt had breast cancer, age 75. Prior Study Comparison: 09/15/2014 Bilateral Diagnostic Mammogram, [facility]. 06/15/2017 Bilateral Diagnostic Mammogram, [facility]. 07/06/2018 Bilateral Diagnostic Mammogram, [facility]. 01/04/2019 Bilateral Diagnostic Mammogram, [facility]. 02/17/2020 Bilateral Diagnostic Mammogram, [facility]. 02/17/2020 Left Diagnostic Ultrasound, [facility]. 08/25/2020 Left Diagnostic Mammogram, [facility]. 02/25/2021 Bilateral Diagnostic Mammogram, [facility]. 03/01/2022 Bilateral MG 3D screening mammo w/cad, [facility]. Tissue Density: There are scattered fibroglandular densities. Findings: Analyzed By CAD. Diminished size to left breast with scarring and distortion along with surgical clips and dystrophic calcifications are all redemonstrated. There are a few loosely grouped small benign-appearing round calcifications bilaterally redemonstrated. No suspicious new mass or distortion in either breast. Overall Assessment: Benign, BI-RAD 2 Management: Screening Mammogram of both breasts in 1 year. Manage patient's symptoms clinically. Results were given to the patient verbally at the time of exam. Patient should continue monthly self-breast exams. A clinical breast exam by your physician is recommended on an annual basis. This exam should not preclude additional follow-up of suspicious palpable abnormalities. Note on Josselyn scores and lifetime risk: 1. A Josselyn score greater than 3% is considered moderate risk. If this is the case, consider specialist referral to assess eligibility for a risk reducing agent. 2. If overall lifetime risk for the development of breast cancer is 20% or higher, the patient may qualify for future screening with alternating mammogram and breast MRI. Electronically signed and approved by: Joshua Fulton M.D.
== END | disposition home or self-care (01) ==
LOC: RADMAMWWP 11:00
PROVIDERS: ATTEND Obstetrics & Gynecology
DX: N64.4 Mastodynia (principal); Z85.3 Personal history of malignant neoplasm of breast; Z78.0 Asymptomatic menopausal state; Z80.3 Family history of malignant neoplasm of breast
CPT/HCPCS: 77066; G0279; 77062

== ENCOUNTER → 2024-05-29 | Outpatient (CLI) | payer MEDICARE, OTHER ==
--- NOTE | 2024-05-29 08:20 | MM ---
Reason for Exam: Follow-up at short interval from prior study. Last mammogram was performed 1 year(s) and 3 month(s) ago. Patient History: Menarche at age 11. First Full-Term at age 18. Right ovary removed at age 42. Hysterectomy at age 42. Postmenopausal. Breast cancer, left, age 54. Previous chest radiation therapy at age 54. Previous chemotherapy at age 54. Estrogen, starting at age 45 for 3 years. Progesterone, starting at age 45 for 3 years. 10/2004, Lumpectomy on the Left side. 2015, Reduction on the Right side. 08/15/2019, Benign Core Biopsy on the left side. 07/19/2018, Benign Core Biopsy on the left side. 10/14/2004, Malignant Stereotactic Core Biopsy on the left side. 2004, Chemotherapy. 2004, Radiation Therapy on the left side. Maternal cousin had breast cancer, age 40. Maternal aunt had breast cancer, age 75. Prior Study Comparison: 02/17/2020 Left Diagnostic Ultrasound, [facility]. 08/25/2020 Left Diagnostic Mammogram, [facility]. 02/25/2021 Bilateral Diagnostic Mammogram, [facility]. 03/01/2022 Bilateral MG 3D screening mammo w/cad, [facility]. 03/03/2023 Bilateral MG 3D diag mammo w/cad [place], [facility]. Tissue Density: There are scattered areas of fibroglandular density. Findings: Analyzed By CAD. Pattern is stable. Coarse calcification and multiple surgical clips are previous lumpectomy site. Benign-appearing calcifications are within the right breast. No suspicious groups of microcalcifications, spiculated or lobular masses, architectural distortion or other secondary signs of malignancy are mammographically apparent. Overall Assessment: Benign, BI-RAD 2 Management: Screening Mammogram of both breasts in 1 year. A negative mammogram report should not preclude additional follow up of suspicious palpable abnormalities. Patient should continue monthly self breast exam. A clinical breast exam by your physician is recommended on an annual basis and results should be correlated with mammographic findings. Note on Josselyn scores and lifetime risk: 1. A Josselyn score greater than 3% is considered moderate risk. If this is the case, consider specialist referral to assess eligibility for a risk reducing agent. 2. If overall lifetime risk for the development of breast cancer is 20% or higher, the patient may qualify for future screening with alternating mammogram and breast MRI. [facility], , 05/29/2024 8:17 AM. Electronically signed and approved by: Ranjith Solis D.O. Radiologis
--- NOTE | 2024-05-31 19:13 | BD ---
EXAMINATION TYPE: Axial Bone Density DATE OF EXAM: 05/29/2024 CLINICAL HISTORY: 74 years old Female. ICD-10 CODE: Z78.0 ASYMPTOMATIC MENOPAUSAL STATE Height: 61 in Weight: 146 lbs FRAX RISK QUESTIONS: Secondary Osteoporosis: 3. Menopause before 45: partial hysterectomy age 42 EXAM MEASUREMENTS: Bone mineral densitometry was performed using the [employer]. Bone mineral density as measured about the Lumbar spine is: ----- L1-L4(G/cm2): 1.012 T Score Values are as follows: ----- L1: -1.9 ----- L2: -1.7 ----- L3: -0.7 ----- L4: -1.6 ----- L1-L4: -1.4 Z Score Values are as follows: ----- L1: -0.2 ----- L2: 0.0 ----- L3: 1.0 ----- L4: 0.1 ----- L1-L4: 0.3 Bone mineral density has: Decreased -1.6% since study of: 10/05/2004 Bone mineral density about the R hip (g/cm2): 0.751 Bone mineral density about the L hip (g/cm2): 0.779 T Score values are as follows: -----R Neck: -2.5 -----L Neck: -2.3 -----R Total: -2.0 -----L Total: -1.8 Z Score values are as follows: -----R Neck: -0.6 -----L Neck: -0.5 -----R Total: -0.4 -----L Total: -0.2 Bone mineral density has: Decreased -8.9% since study of: 10/05/2004 FRAX%s: The graph provided illustrates a 16.1% chance for a major osteoporotic fx and a 4.8% chance f or the hips probability for fx in 10 years time. IMPRESSION: Osteopenia (T Score between -2.5 and -1). There is slightly increased risk of fracture and the patient may be considered for treatment. Re-Screen 2-5 years. NOTE: T-SCORE=SD OF THE YOUNG ADULT MEAN. [facility], , 05/31/2024 7:10 PM
== END | disposition home or self-care (01) ==
LOC: RADMAMWWP 07:49
PROVIDERS: ATTEND Obstetrics & Gynecology
DX: Z85.3 Personal history of malignant neoplasm of breast (principal); M81.8 Other osteoporosis without current pathological fracture; N64.4 Mastodynia; Z78.0 Asymptomatic menopausal state; Z80.3 Family history of malignant neoplasm of breast; Z90.722 Acquired absence of ovaries, bilateral; R92.323 Mammographic fibroglandular density, bilateral breasts
CPT/HCPCS: 77062; 77066; 77080